=== PATIENT | male | born 1975 | race Two or more races ===

== ENCOUNTER 2022-04-19 04:02 | Emergency (ER) | payer SELFPAY ==
[~2022-04-19] VITALS: Ht 175.3 cm; Wt 81.7 kg
[2022-04-19 04:10] VITALS: BP 116/74
== END 2022-04-19 04:15 | disposition left against medical advice (07) ==
LOC: EDBD 04:02 → ER 04:02
DX: R56.9 Unspecified convulsions (principal); Z53.21 Procedure and treatment not carried out due to patient leaving prior to being seen by health care provider